=== PATIENT | female | born 2000 | race Caucasian/White ===

== ENCOUNTER 2019-04-02 12:31 | Emergency (ER) | payer OTHER ==
[2019-04-02] MEDS ORDERED: NA CHLORIDE 0.9% 1,000 ML ONE (13:44)
[2019-04-02 14:26] LABS: Absolute Lymphocytes (CBC) 2.8 K/uL (0.7-4.9); Basophils % 0.8 % (0-1.3); Hematocrit 41.3 % (36.0-45.0); Lymphocytes % 28.4 % (15.3-44.8); MPV 7.6 fL (7.6-11.3); RBC Red Blood Cell Count 4.69 M/uL (3.86-4.86)
[2019-04-02 14:41] LABS: ALT/SGPT 17 U/L (12-78); AST/SGOT 10 U/L (15-37); Albumin 4.2 g/dL (3.4-5.0); Alkaline Phosphatase 56 U/L (45-117); BUN Blood Urea Nitrogen 11 mg/dL (7-18); Bicarbonate 25 mmol/L (21-32); Bilirubin Total 0.5 mg/dL (0.2-1.0); Glucose Level 93 mg/dL (74-106); Potassium 3.9 mmol/L (3.5-5.1); Protein, Total 7.5 g/dL (6.4-8.2); Sodium Level 139 mmol/L (136-145)
--- NOTE | 2019-04-02 15:33 | EDPHYS ---
Physician Documentation [facility] Name: Fely Meza Age: 19 yrs Sex: Female : 2000 Arrival Date: 04/02/2019 Time: 12:34 Bed 15 Private MD: ED Physician Daniel Beard HPI: 04/02 13:25 This 19 yrs old Female presents to ER via Ambulatory with complaints of jmm General Weakness, Dizziness, Nausea, cold sweats. 13:25 The patient has experienced near-syncope. Onset: The symptoms/episode began/occurred jmm acutely, just prior to arrival. Duration: This was a single episode. Associated injury: The patient did not suffer any apparent associated injury. This is a 19 year old female with a history of anxiety, ptsd, chronic sinusitis, chronic vertigo that presents to the ED with complaints of near syncope. This occurred while drawing blood just prior to arrival. Patient states she was told she turned pale and sweaty. Patient states she hadnt eaten today. . 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 - Social history:: Smoking status: . - Ebola Screening: : Patient denies travel to an Ebola-affected area in the 21 days before illness onset. ROS: 13:25 Constitutional: Negative for fever, chills, and weight loss, Cardiovascular: Negative jmm for chest pain, palpitations, and edema, Respiratory: Negative for shortness of breath, cough, wheezing, and pleuritic chest pain. 13:25 Neuro: Positive for dizziness, near syncope. 13:25 All other systems are negative. Exam: 13:25 Constitutional: This is a well developed, well nourished patient who is awake, alert, jmm and in no acute distress. Head/Face: atraumatic. Eyes: EOMI, no conjunctival erythema appreciated ENT: Moist Mucus Membranes Neck: Trachea midline, Supple Chest/axilla: Normal chest wall appearance and motion. 13:25 Cardiovascular: Rate: normal, Rhythm: regular. 13:25 Respiratory: the patient does not display signs of respiratory distress, Respirations: normal, Breath sounds: are clear throughout. 13:25 Musculoskeletal/extremity: ROM: intact in all extremities. 13:25 Skin: Appearance: Color: normal in color. 13:25 Neuro: Orientation: is normal, Mentation: is normal, Memory: is normal. 13:25 Psych: Behavior/mood is pleasant, cooperative. Vital Signs: 12:40 BP 141 / 93; Pulse 74; Resp 17; Temp 97.7(O); Pulse Ox 99% on R/A; Weight 110.22 kg tw2 (R); Height 5 ft. 4 in. (162.56 cm); Pain 4/10; 14:27 BP 117 / 70; Pulse 82; Resp 16 S; Pulse Ox 100% on R/A; jl7 12:40 Body Mass Index 41.71 (110.22 kg, 162.56 cm) tw2 12:40 97.4 temporal tw2 MDM: 13:25 Patient medically screened. [facility] 15:31 Data reviewed: vital signs, nurses notes. Counseling: I had a detailed discussion with [facility] the patient and/or guardian regarding: the historical points, exam findings, and any diagnostic results supporting the discharge/admit diagnosis, lab results, the need for outpatient follow up, to return to the emergency department if symptoms worsen or persist or if there are any questions or concerns that arise at home. ED course: Patient is alert and non toxic in appearance in the ED. I discussed with the patient the need to follow up with pcp. Patient states she feels much better. Most likely due to vaso vagal syncope. . 04/02 13:35 Order name: CBC with Diff; Complete Time: 14:30 [facility] 04/02 13:35 Order name: CMP; Complete Time: 14:46 [facility] 04/02 13:35 Order name: D-Dimer; Complete Time: 14:36 [facility] 04/02 14:21 Order name: Urine Dipstick--Ancillary (enter results) 04/02 14:21 Order name: Urine --Ancillary (enter results) 04/02 13:35 Order name: EKG - Nurse/Tech; Complete Time: 14:25 [facility] 04/02 13:35 Order name: Urine Dipstick-Ancillary (obtain specimen); Complete Time: 14:25 [facility] 04/02 13:35 Order name: Urine Test (obtain specimen); Complete Time: 14:25 [facility] Administered Medications: 14:24 Drug: NS 0.9% 1000 ml Route: IV; Rate: 1 bolus; Site: left antecubital; jl7 15:55 Follow up: Response: No adverse reaction; IV Status: Completed infusion; IV Intake: jl7 500ml Disposition: 04/03 06:46 Co-signature as Attending Physician, Daniel Beard MD I agree with the assessment and harmony plan of care. Disposition: 04/02/19 15:32 Discharged to Home. Impression: Syncope and collapse. - Condition is Stable. - Discharge Instructions: Near-Syncope. - Medication Reconciliation Form, Thank You Letter, Antibiotic Education, Prescription Opioid Use form. - Follow up: Private Physician; When: 1 - 2 days; Reason: Recheck today's complaints, Continuance of care, Re-evaluation by your physician. Signatures: Dispatcher [employer] Daniel Germain MD MD cha Mickail, Joel, PA PA jmm Wise, Tara, RN RN tw2 Andrew Villarreal RN RN jl7 Corrections: (The following items were deleted from the chart) 04/02 15:38 12:44 PMHx: HS; lino2 jl7 16:00 15:32 04/02/2019 15:32 Discharged to Home. Impression: Syncope and collapse. Condition jl7 is Stable. Forms are Medication Reconciliation Form, Thank You Letter, Antibiotic Education, Prescription Opioid Use. Follow up: Private Physician; When: 1 - 2 days; Reason: Recheck today's complaints, Continuance of care, Re-evaluation by your physician. [facility]
--- NOTE | 2019-04-02 15:33 | ER ---
Nurse's Notes [facility] Name: Fely Meza Age: 19 yrs Sex: Female : 2000 Arrival Date: 04/02/2019 Time: 12:34 Bed 15 Private MD: Diagnosis: Syncope and collapse Presentation: 04/02 12:37 Presenting complaint: Patient states: i was giving blood 20 minutes ago, then right tw2 after i started feeling dizzy, and had a ortiz of nauseousness, and felt cold and sweaty, and i was told i looked pale. Presenting complaint: Patient states: "i felt like i was going to briefly but now i am fine, i have had panic attacks but they havent felt like that, the neurologist sent me there for the blood work". Transition of care: patient was not received from another setting of care. Onset of symptoms was April 02, 2019. Risk Assessment: Do you want to hurt yourself or someone else? Patient reports no desire to harm self or others. Initial Sepsis Screen: Does the patient meet any 2 criteria? No. Patient's initial sepsis screen is negative. Does the patient have a suspected source of infection? No. Patient's initial sepsis screen is negative. Care prior to arrival: None. 12:37 Method Of Arrival: Ambulatory tw2 12:37 Acuity: GARRY 3 tw2 Triage Assessment: 12:39 General: Appears in no apparent distress. obese, Behavior is calm, cooperative, tw2 appropriate for age. Pain: Denies pain. Neuro: Reports dizziness. GI: Reports nausea. 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 - Social history:: Smoking status: . - Ebola Screening: : Patient denies travel to an Ebola-affected area in the 21 days before illness onset. Screenin:09 Abuse screen: Denies threats or abuse. Nutritional screening: No deficits noted. tw2 Tuberculosis screening: No symptoms or risk factors identified. Fall Risk None identified. Assessment: 13:30 General: Appears in no apparent distress. uncomfortable, Behavior is cooperative, jl7 anxious. Pain: Complains of pain in "I have a lot of chronic pain.". Neuro: Level of Consciousness is awake, alert, obeys commands, Oriented to person, place, time, situation. Cardiovascular: Patient's skin is warm and dry. Respiratory: Airway is patent Respiratory effort is even, unlabored, Respiratory pattern is regular, symmetrical. GI: Abdomen is round non-distended. : No signs and/or symptoms were reported regarding the genitourinary system. EENT: No signs and/or symptoms were reported regarding the EENT system. Derm: Skin is pink, warm \\T\\ dry. Musculoskeletal: No signs and/or symptoms reported regarding the musculoskeletal system. 14:27 Reassessment: Patient appears in no apparent distress at this time. No changes from jl7 previously documented assessment. Patient and/or family updated on plan of care and expected duration. Pain level reassessed. Patient is alert, oriented x 3, equal unlabored respirations, skin warm/dry/pink. 15:27 Reassessment: Pt provided with a cup of grape juice at this time. jl7 Vital Signs: 12:40 BP 141 / 93; Pulse 74; Resp 17; Temp 97.7(O); Pulse Ox 99% on R/A; Weight 110.22 kg tw2 (R); Height 5 ft. 4 in. (162.56 cm); Pain 4/10; 14:27 BP 117 / 70; Pulse 82; Resp 16 S; Pulse Ox 100% on R/A; jl7 12:40 Body Mass Index 41.71 (110.22 kg, 162.56 cm) tw2 12:40 97.4 temporal tw2 ED Course: 12:34 Patient arrived in ED. am2 12:39 Triage completed. tw2 12:39 Arm band placed on. tw2 13:18 Andrew Villarreal RN is Primary Nurse. jl7 13:18 Bed in low position. Adult w/ patient. tw2 13:19 Zay Yanez PA is [facility]CP[facility] 13:19 Daniel Beard MD is Attending Physician. [facility] 14:26 EKG done, by serology technician. reviewed by Zay SEGOVIA. 3 14:27 cardiac monitor on. Pulse ox on. NIBP on. jl7 14:27 Initial lab(s) drawn, by ma, sent to lab. Urine collected: clean catch specimen, clear. jl7 Inserted saline lock: 20 gauge in left antecubital area, using aseptic technique. Blood collected. 14:59 Urine --Ancillary (enter results) Sent. kj1 14:59 Urine Dipstick--Ancillary (enter results) Sent. kj1 15:55 No provider procedures requiring assistance completed. IV discontinued, intact, jl7 bleeding controlled, No redness/swelling at site. Pressure dressing applied. Administered Medications: 14:24 Drug: NS 0.9% 1000 ml Route: IV; Rate: 1 bolus; Site: left antecubital; jl7 15:55 Follow up: Response: No adverse reaction; IV Status: Completed infusion; IV Intake: jl7 500ml Intake: 15:55 IV: 500ml; Total: 500ml. jl7 Outcome: 15:32 Discharge ordered by [facility] 15:55 Discharged to home ambulatory. jl7 15:55 Condition: stable 15:55 Discharge instructions given to patient, Instructed on discharge instructions, follow up and referral plans. Demonstrated understanding of instructions, follow-up care. 16:00 Patient left the ED. jl Signatures: Zay Yanez PA PA [facility] Xiomy Teran RN RN tw2 Andrew Villarreal RN RN jl7 Kenisha Heart am2 Mallory Walsh 3 Gissel Garcia kj1 Corrections: (The following items were deleted from the chart) 15:38 12:44 PMHx: HS; tw2 jl7
[2019-04-02 16:28] LABS: Urine Blood TRACE (NEG); Urine Glucose NEGATIVE (NEG); Urine Protein NEGATIVE (NEG); Urine Specific Gravity 1.025 (1.005-1.030)
[2019-04-02 17:01] VITALS: TEMP 97.7
[2019-04-02 17:03] VITALS: BP 117/70; O2SAT 100
--- NOTE | 2019-04-03 06:55 | EKG ---
Test Date: 2019-04-02 Test Time: 13:53:35 Washer Off: ISHAN MEASUREMENT RESULTS: Intervals: Rate: 93 MS: 140 QRSD: 72 QT: 362 QTc: 450 [place]: P: 51 MS: 140 QRS: 90 T: 44 INTERPRETIVE STATEMENTS: Normal sinus rhythm Rightward axis Pulmonary disease pattern Abnormal ECG Compared to ECG 03/29/2019 17:24:28 no significant change from previous ECG Electronically Signed On 04-03-19 06:55:04 CDT by Lucian Valverde
== END 2019-04-02 16:00 | disposition home or self-care (01) ==
LOC: ER 12:31
DX: R55 Syncope and collapse (principal); F41.9 Anxiety disorder, unspecified; F43.10 Post-traumatic stress disorder, unspecified; Z91.018 Allergy to other foods; Z91.040 Latex allergy status; Z91.048 Other nonmedicinal substance allergy status
CPT/HCPCS: 96361; 93005; 85025; 36415; 81025; 85379; 81003; 80053; 96360; 99284; J7030

== ENCOUNTER 2020-06-30 11:47 | Emergency (ER) | payer OTHER ==
--- OUTSIDE RECORDS SUMMARY | 2020-06-30 11:49 | XMS REPORT | Clinical Summary ---
:2000 Author Organization [facility] Address [address] [place] [id number] Care Team Providers Name Role Phone Unavailable Primary Care Provider Unavailable Allergies Active Allergy Reactions Severity Noted Date Comments Aloe Vera Hives, Rash Low 02/07/2018 Latex Hives, Rash Low 02/07/2018 [place] Other (See Comments) 02/07/2018 Scratch y throat, swelling Medications No known medications Active Problems Not on file Social History Tobacco Use Types Packs/Day Years Used Date Never Smoker Smokeless Tobacco: Never Used Alcohol Use Drinks/Week oz/Week Comments Yes liquor/beer/wine socially Sex Assigned at Date Recorded Not on file Last Filed Vital Signs Not on file Plan of Treatment Health Maintenance Due Date Last Done Comments LIPID PANEL 2019 CERVICAL CANCER SCREENING PAP ONLY (Age 21-65) 02/03/2020 INFLUENZA VACCINE (#1) 2020 Results Not on fileafter 06/30/2019 Insurance Payer Benefit Plan / Subscriber ID Effective Dates Phone Addre ss Type Group CIGNA - MGD CIGNA [id number] 2017-Present HMO/POS CARE HMO/POS/OPEN ACCESS
--- OUTSIDE RECORDS SUMMARY | 2020-06-30 11:49 | XMS REPORT | Continuity of Care Document ---
:2000 Author Organization [facility] Care Team Providers Name Role Phone [facility] Unavailable Un available Problems Problem Status Onset Classification Date Comments Sourc e Date Reported Obesity (BMI Active Diagnosis 08/21/2018 [facility] 30.0-34.9) [facility] Irritable bowel Active Problem 08/21/2018 [facility] syndrome with Health constipation Rectal bleeding Active Diagnosis 08/21/2018 [facility] Intractable Active Diagnosis 08/21/2018 [facility] ve vomiting with Health nausea, unspecified vomiting type Rectal Active Diagnosis 08/21/2018 [facility] abnormality [facility] Medications Medication Details Route Status Patient Ordering Order Source Instructions Provider Date Linzess 1 cap(s) orally Active 72 mcg orally ETHEL [facility] once a day 019 Health SMZ-TMP DS 1 tab(s) orally Active 800 mg-160 mg ETHEL [facility] perla orally 2 times Health a day Loestrin 24 not NA Active ETHEL [facility] Fe defined Health Allergies, Adverse Reactions, Alerts Substance Category Reaction Severity Reaction Status Date Comments S ource type Reported Latex Adverse Info Not Adverse Active Diges tive Reaction Available Reaction 9 Heal th Aloe Adverse Info Not Adverse Active Diges tive Reaction Available Reaction 9 Heal th Immunizations No Data Provided for This Section Results No Data Provided for This Section Pathology Reports No Data Provided for This Section Diagnostic Reports No Data Provided for This Section Consultation Notes No Data Provided for This Section Discharge Summaries No Data Provided for This Section History and Physicals No Data Provided for This Section Vital Signs Vital Sign Value Date Comments Source Systolic (mm Hg) 0 08/13/2018 [facility] Weight 228 08/13/2018 [facility] Encounters No Data Provided for This Section Procedures No Data Provided for This Section Assessment and Plan No Data Provided for This Section Plan of Care No Data Provided for This Section Social History No Data Provided for This Section Family History No Data Provided for This Section Advance Directives No Data Provided for This Section Functional Status No Data Provided for This Section
--- OUTSIDE RECORDS SUMMARY | 2020-06-30 11:50 | XMS REPORT | Continuity of Care Document ---
:2000 Author Organization [facility] t Address [address] [place] [address] Care Team Providers Name Role Phone Vitor Mora Attending Clinician Unavailable Margarita Costa Attending Clinician Problems Condition Condition Condition Status Onset Resolution Last Treating Co mments Source Name Details Category Date Date Treatment Clinician Date Obesity Diagnosis Active 2018-08-21 Me moria (BMI 03:00:26 l 30.0-34.9) Obesity Her salcedo (BMI 30.0-34.9) Active Diagnosis 08/21/2018 [facility] Irritable Problem Active 2018-08-21 Me moria bowel 03:00:26 l syndrome Yoel with Irritable constipati bowel on syndrome with constipati on Active Problem 9 [facility] Rectal Diagnosis Active 2018-08-21 Mem oria bleeding 03:00:26 l Rectal [place] bleeding Active Diagnosis 08/21/2018 [facility] Intractabl Diagnosis Active 2018-08-21 Memoria e vomiting 03:00:26 l with Yoel nausea, Intractabl unspecifie e vomiting d vomiting with type nausea, unspecifie d vomiting type Active Diagnosis 08/21/2018 [facility] Rectal Diagnosis Active 2018-08-21 Mem oria abnormalit 03:00:26 l y Rectal Yoel abnormalit y Active Diagnosis 08/21/2018 [facility] Allergies, Adverse Reactions, Alerts Allergy Allergy Status Severity Reaction(s) Onset Inactive Treating Comm ents Source Name Type Date Date Clinician Aloe Aloe Active Info Not 2019-0 Memoria Available 2-25 l 00:00: Yoel 00 Aloe Drug [facility] Latex Drug [facility], [facility] [place] Drug Active Other (See Scratchy [facility] Comments) 02-07 throat[facility] Social History Social Habit Start Date Stop Date Quantity Comments Source Sex Assigned At [facility] Tobacco use and 2018-02-07 2018-02-07 Never used [facility] kes - exposure 00:00:00 00:00:00 Medical [place] Alcohol intake 2018-02-07 2018-02-07 Current drinker [facility]00 of alcohol [facility] (finding) Alcohol Comment 2018-02-07 2018-02-07 liquor/beer/wine [facility] ochoa - 00:00:00 00:00:00 [facility] Smoking Status Start Date Stop Date Source [facility] smoker [facility] Medications Ordered Filled Start Stop Current Ordering Indication Dosage Frequency Signature Comments Components Source Medication Medication Date Date Medication? Clinician (SIG) Name Name SMZ-TMP DS Yes GOWRAPPALA 1 tab(s) Memoria 3-05 ETHEL l 03:00: [place] Loestrin 24 Yes GOWRAPPALA not Memoria Fe 3-05 ETHEL defined l 03:00: Linzess Yes GOWRAPPALA 1 cap(s) Memoria 2-25 ETHEL l 00:00: Vital Signs Vital Name Observation Time Observation Value Comments Source Systolic (mm Hg) 2018-08-13 16:00:00 Junito rial Yoel Weight 2018-08-13 16:00:00 [facility] Procedures This patient has no known procedures. Plan of Care Planned Activity Planned Date Details Comments Source Future Scheduled 2020-02-[address] [facility] - Test 00:00:00 (#1) [code = Medical Center INFLUENZA VACCINE (#1)] Future Scheduled 2020-02-[address] [facility] - Test 00:00:00 malignant neoplasm [facility] enter of cervix (procedure) [code = 809076740] Future Scheduled [address] [facility] - Test 00:00:00 (procedure) [code = Medical Center [id number]] Encounters Start End Encounter Admission Attending Care Care Encounter Source Date/Time Date/Time Type Type Clinicians Facility Department ID 2020-04-21 2020-04-21 Outpatient ADI Mora [id number] [facility] 15:53:00 15:53:[address] RAMSAYN 2020-01-14 2020-01-14 Emergency [facility] [id number] 12:33:29 17:13:00 Nayla Mei [id number] Hanna [id number] Leslie [id number] 2019-07-29 2019-07-29 Outpatient ADI MoraTy [id number] [facility] 15:48:00 15:48:[address] BLEVINS 2019-05-27 2019-05-27 Outpatient MorganADI wadsworthN [id number] [facility] 15:01:00 15:01:[address] RAMSAYN 2019-04-29 2019-04-29 Outpatient MorganADI wadsworthGYN [id number] [facility] 14:56:00 14:56:[address] RAMSAYN 2019-03-25 2019-03-25 Outpatient ADI MoraN [id number] [facility] 13:42:00 13:42:[address] RAMSAYN 2019-03-05 2019-03-05 Outpatient MorganADI wadsworthGYN [id number] [facility] 15:34:00 15:34:00 Gene OBGYN 2018-09-06 2018-09-06 Outpatient MorganADI wadsworthGYN [id number] [facility] 13:39:00 13:39:00 Gene OBGYN 2018-08-13 2018-08-13 Outpatient DIGESTIVE DIGESTIVE [id number] [facility] 10:00:00 10:00:00 [employer] [facility] Her salcedo S Results This patient has no known results.
[2020-06-30 13:48] LABS: Urine Blood NEGATIVE (NEG); Urine Glucose NEGATIVE (NEG); Urine Protein NEGATIVE (NEG); Urine Specific Gravity >1.030 (1.005-1.030); Urine pH 6.5 (5.0-7.0)
[2020-06-30 13:48] LABS: Urine Specific Gravity >1.030 (1.005-1.030)
--- NOTE | 2020-06-30 14:01 | ER ---
Nurse's Notes [facility] Name: Fely Meza Age: 20 yrs Sex: Female : 2000 Arrival Date: 06/30/2020 Time: 11:51 Bed 27 Private MD: Diagnosis: Suicidal ideations-resolved Presentation: 06/30 12:00 Chief complaint: Patient states: "I just wanted to get on medication for my depression, ss but since my general practitioner didn't know what to put me on and told me that I should come in here.". Coronavirus screen: Client denies travel out of the [place] in the last 14 days. Ebola Screen: Patient denies exposure to infectious person. Patient denies travel to an Ebola-affected area in the 21 days before illness onset. Initial Sepsis Screen: Does the patient meet any 2 criteria? No. Patient's initial sepsis screen is negative. Does the patient have a suspected source of infection? No. Patient's initial sepsis screen is negative. Risk Assessment: Do you want to hurt yourself or someone else? Patient reports no desire to harm self or others. Onset of symptoms is unknown. 12:00 Method Of Arrival: Ambulatory ss 12:00 Acuity: GARRY 3 ss 12:00 Note Denies HI/ SI at this time. ss Historical: - Allergies: 12:06 aloe vera; ss 12:06 Latex, Natural Rubber; ss 12:06 ORANGES; ss - PMHx: 12:06 Anxiety; Autoimmune disorder; PTSD; ibs; Depression; ss - PSHx: 12:06 None; ss - Immunization history:: Adult Immunizations up to date. - Social history:: Smoking status: Patient denies any tobacco usage or history of. Screenin:15 Abuse screen: Denies threats or abuse. Nutritional screening: No deficits noted. vg1 Tuberculosis screening: No symptoms or risk factors identified. Fall Risk No fall in past 12 months (0 pts). No secondary diagnosis (0 pts). No IV (0 pts). Ambulatory Aid- None/Bed Rest/Nurse Assist (0 pts). Gait- Normal/Bed Rest/Wheelchair (0 pts) Mental Status- Oriented to own ability (0 pts). Total Parker Fall Scale indicates No Risk (0-24 pts). Assessment: 12:09 Reassessment: SOY Vergara in triage assessing patient at this time. ss 13:15 General: Appears in no apparent distress. comfortable, Behavior is calm, cooperative. vg1 13:15 Pain: Denies pain. Neuro: Level of Consciousness is awake, alert, obeys commands, vg1 Oriented to person, place, time, situation, Reports Asked patient how they are feeling and patient stated Im just here existing.. Cardiovascular: Patient's skin is warm and dry. Cardiovascular: Patient's skin is warm and dry. Respiratory: Airway is patent Respiratory effort is even, unlabored, Respiratory pattern is regular, symmetrical. GI: No signs and/or symptoms were reported involving the gastrointestinal system. : No signs and/or symptoms were reported regarding the genitourinary system. EENT: No signs and/or symptoms were reported regarding the EENT system. Derm: Skin is intact, is healthy with good turgor. Musculoskeletal: Circulation, motion, and sensation intact. Vital Signs: 12:00 BP 141 / 79; Pulse 77; Resp 18; Temp 97.9(TE); Pulse Ox 99% on R/A; Weight 113.4 kg; ss Height 5 ft. 3 in. (160.02 cm); Pain 0/10; 12:00 Body Mass Index 44.29 (113.40 kg, 160.02 cm) ED Course: 11:51 Patient arrived in ED. as 12:05 Triage completed. ss 12:06 Arm band placed on left wrist. ss 12:14 [facility] kb 12:14 Daniel Beard MD is Attending Physician. kb 12:52 Tammy Colon, RN is Primary Nurse. vg1 13:15 Patient has correct armband on for positive identification. Call light in reach. vg1 13:43 Provider at bedside. vg1 14:00 Ric Mckeon MD is Referral Physician. kb 14:09 No provider procedures requiring assistance completed. Patient did not have IV access vg1 during this emergency room visit. Administered Medications: No medications were administered Outcome: 14:00 Discharge ordered by . kb 14:09 Discharged to home ambulatory. vg1 14:09 Condition: stable 14:09 Discharge instructions given to patient, Instructed on discharge instructions, follow up and referral plans. medication usage, Demonstrated understanding of instructions, follow-up care, medications, Prescriptions given X 2. 14:11 Patient left the ED. vg1 Signatures: Ursula Garcia, [employer] SUPERVISOR-C [employer] SUPERVISOR-Jade Zamarripa Shelby, RN RN ss Tammy Colon RN RN vg1 Corrections: (The following items were deleted from the chart) 12:09 12:00 Acuity: GARRY 2 ss ss 13:33 13:15 Pain: Denies pain. vg1 vg1 :33 13:15 Neuro: Level of Consciousness is awake, alert, obeys commands, Oriented to vg1 person, place, time, situation, vg1
--- NOTE | 2020-06-30 14:01 | EDPHYS ---
Physician Documentation [facility] Name: Fely Meza Age: 20 yrs Sex: Female : 2000 Arrival Date: 06/30/2020 Time: 11:51 Bed 27 Private MD: ED Physician Daniel Beard HPI: 06/30 15:18 This 20 yrs old Female presents to ER via Ambulatory with complaints of kb Suicidal Ideation. 15:18 The patient presents to the emergency department with anxiety, depression. Onset: The kb symptoms/episode began/occurred years ago. Past psychiatric history: Prior diagnosis: bipolar disorder. Associated signs and symptoms: Pertinent positives; anxiety, depression. Severity of symptoms: At their worst the symptoms were moderate in the emergency department the symptoms are unchanged. The patient has not experienced similar symptoms in the past. The patient has not recently seen a physician. Pt reports she has been off of her psych meds for a long time and recently has had some suicidal ideations that pop into her head momentarily so she went to her PCP to get put back on meds. States her PCP called Dr Larios because she didn't want to prescribe the medication and Dr Larios advised that the pt come to the ER and he would see her here. PT denies suicidal or homicidal ideations at this time. Historical: - Allergies: 12:06 aloe vera; ss 12:06 Latex, Natural Rubber; ss 12:06 ORANGES; ss - PMHx: 12:06 Anxiety; Autoimmune disorder; PTSD; ibs; Depression; ss - PSHx: 12:06 None; ss - Immunization history:: Adult Immunizations up to date. - Social history:: Smoking status: Patient denies any tobacco usage or history of. ROS: 15:18 Constitutional: Negative for fever, chills, and weight loss, Cardiovascular: Negative kb for chest pain, palpitations, and edema, Respiratory: Negative for shortness of breath, cough, wheezing, and pleuritic chest pain, Abdomen/GI: Negative for abdominal pain, nausea, vomiting, diarrhea, and constipation, Back: Negative for injury and pain, MS/Extremity: Negative for injury and deformity, Skin: Negative for injury, rash, and discoloration, Neuro: Negative for headache, weakness, numbness, tingling, and seizure. 15:18 Psych: Positive for anxiety, depression. Exam: 15:18 Constitutional: This is a well developed, well nourished patient who is awake, alert, kb and in no acute distress. Head/Face: Normocephalic, atraumatic. Chest/axilla: Normal chest wall appearance and motion. Nontender with no deformity. No lesions are appreciated. Cardiovascular: Regular rate and rhythm with a normal S1 and S2. No gallops, murmurs, or rubs. Normal PMI, no JVD. No pulse deficits. Respiratory: Lungs have equal breath sounds bilaterally, clear to auscultation and percussion. No rales, rhonchi or wheezes noted. No increased work of breathing, no retractions or nasal flaring. Abdomen/GI: Soft, non-tender, with normal bowel sounds. No distension or tympany. No guarding or rebound. No evidence of tenderness throughout. Skin: Warm, dry with normal turgor. Normal color with no rashes, no lesions, and no evidence of cellulitis. MS/ Extremity: Pulses equal, no cyanosis. Neurovascular intact. Full, normal range of motion. Neuro: Awake and alert, GCS 15, oriented to person, place, time, and situation. Cranial nerves II-XII grossly intact. Motor strength 5/5 in all extremities. Sensory grossly intact. Cerebellar exam normal. Normal gait. 15:18 Psych: Behavior/mood is pleasant, cooperative, Affect is calm, Oriented to person, kb place, time, Patient has no thoughts/intents to harm self or others. Judgement / Insight is normal. Memory is normal. Delusions/hallucinations are not present. Vital Signs: 12:00 BP 141 / 79; Pulse 77; Resp 18; Temp 97.9(TE); Pulse Ox 99% on R/A; Weight 113.4 kg; ss Height 5 ft. 3 in. (160.02 cm); Pain 0/10; 12:00 Body Mass Index 44.29 (113.40 kg, 160.02 cm) MDM: 12:14 Patient medically screened. 12:15 Data reviewed: vital signs, nurses notes. Data interpreted: Pulse oximetry: on room air kb is 99 %. Interpretation: normal. 12:30 Physician consultation: Ric Mckeon MD was called at 12:30, regarding consult, kb patient's condition, and will see patient in ED, shortly. 13:39 Physician consultation: Ric Mckeon MD in the emergency department to see patient kb at 13:39. 14:03 Counseling: I had a detailed discussion with the patient and/or guardian regarding: the kb historical points, exam findings, and any diagnostic results supporting the discharge/admit diagnosis, the need for outpatient follow up, a psychiatrist, to return to the emergency department if symptoms worsen or persist or if there are any questions or concerns that arise at home. ED course: Dr Mckeon evaluated pt and recommends outpatient treatment. Will continue to see pt in office. Requests pt be sent home with prescriptions for klonopin 0.5mg PO BID and ziprasidone 20mg PO Q HS. . 06/30 13:39 Order name: Urine Dipstick--Ancillary (enter results); Complete Time: 13:49 bd 06/30 13:41 Order name: Urine --Ancillary (enter results); Complete Time: 13:49 bd Administered Medications: No medications were administered Disposition: 18:39 Co-signature as Attending Physician, Daniel Beard MD I agree with the assessment and harmony plan of care. Disposition: 06/30/20 14:00 Discharged to Home. Impression: Suicidal ideations - resolved. - Condition is Stable. - Discharge Instructions: Suicidal Feelings: How to Help Yourself. - Prescriptions for ziprasidone HCl 20 mg Oral capsule - take 1 capsule by ORAL route At bedtime with food; 10 capsule. Klonopin 0.5 mg Oral Tablet - take 1 tablet by ORAL route every 12 hours As needed; 10 tablet. - Medication Reconciliation Form, Thank You Letter, Antibiotic Education, Prescription Opioid Use form. - Follow up: Ric Mckeon MD; When: 1 - 2 days; Reason: Recheck today's complaints. Signatures: Dispatcher [employer] EDMS Ursula Garcia, GENIE-Elida PRESCOTT-Daniel Butler MD MD cha Smirch, Shelby, RN RN Tammy Álvarez RN RN vg1 Corrections: (The following items were deleted from the chart) 14:11 14:00 06/30/2020 14:00 Discharged to Home. Impression: Suicidal ideations - resolved. vg1 Condition is Stable. Forms are Medication Reconciliation Form, Thank You Letter, Antibiotic Education, Prescription Opioid Use. Follow up: Ric Mckeon; When: 1 - 2 days; Reason: Recheck today's complaints. kb 15:21 15:18 Pt reports she has been off of her psych meds for a long time and recently has kb had some suicidal ideations that pop into her head momentarily so she went to her PCP to get put back on meds. States her PCP called Dr Larios because she didn't want to prescribe the medication and Dr Larios advised that the pt come to the ER and he would see her here. . kb
[2020-06-30 14:27] VITALS: BP 141/79; TEMP 97.9; O2SAT 99
--- NOTE | 2020-07-08 13:30 | CON ---
Chief Complaint: Patient was seen ER where patient was converted to evaluate the patient's suicidality. History Of Present Illness: The patient is a 19-year-old female with a past psychiatric history significant for depressive disorder, anxiety disorder, and PTSD. Patient states she has been without her psychiatric medication for the past 6 years, without any significant consequences until recently she started having severe anxiety symptoms and irritability, patient states she then presented to her PCP for treatment but she was frustrated her not willing to start her on medications that has worked for her in the past hence her presentation to the ER. Patient states she is not suicidal. however she admitted to feeling mildly depressed for the past few weeks as a result of her depression. No significant psychosocial stressors. She does admit to having general anxiety, which she describes as excessive worrying with associated panic attacks, reports difficulty falling or staying asleep. Admits to a history of drinking socially and denies abuse of illicit substance. She states she is just currently employed. She states she has never been and has no children. Physical Examination: General: Patient is a well-nourished female, not in any acute distress. Mental Status: The patient is a well-nourished female, properly dressed, not in any obvious acute distress, alert and oriented x3, cooperative with interview. Speech is spontaneous, normal in rate, rhythm, and volume. No preservation observed. Mild psychomotor agitation observed. Gait is normal. Concentration and memory are fair. Mood is described is depressed. Affect mood congruent. Thought process is linear, at times circumstantial. Thought content, no delusional thinking. No suicidal or homicidal ideation. No rumination observed. No auditory or visual hallucination. Fund of knowledge is fair. Language skills fair. Diagnoses: 1. Generalized anxiety disorder 2. Posttraumatic stress disorder, by history. Recommendations: 1. Klonopin 2.5 mg p.o. daily p.r.n. for severe anxiety and panic attack. 2. Continue Geodon 40 mg PO qhs for mood stability 3. Recommended patient to follow up with Psychiatrist post discharge for further evaluation and treatment. 4. Recommended patient to follow up with psychologist for psychotherapy. Discussed treatment with management team. KO/MODL Voice ID: [id number] Report ID: [id number] STEPHANIA
== END 2020-06-30 14:11 | disposition home or self-care (01) ==
LOC: ER 11:47
DX: F32.9 Major depressive disorder, single episode, unspecified (principal); Z91.018 Allergy to other foods; Z91.040 Latex allergy status; Z91.048 Other nonmedicinal substance allergy status
CPT/HCPCS: 81003; 81025; 99282